=== PATIENT | male | born 2000 | race Hispanic/Latino ===

== ENCOUNTER 2024-11-17 21:40 | Emergency (ER) | payer OTHER, SELFPAY ==
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
[2024-11-17 21:36] VITALS: BP 142/68; PULSE 85; RESP 14; TEMP 36.8; O2SAT 92
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
[2024-11-17] MEDS: MORPHINE SULFATE (*CRX) 4 MG/ML INJ IV PUSH (21:56)
[2024-11-17] MEDS: ONDANSETRON INJ 4 MG/2 ML VIAL IV PUSH (21:56)
[2024-11-17 22:21] VITALS: PULSE 93; RESP 17; O2SAT 100
[2024-11-17 22:24] VITALS: BP 139/50; PULSE 97; RESP 17; O2SAT 100
--- NOTE | 2024-11-17 22:26 | PC.NURSE ---
1L NS Bolus infused that was started by EMS.
--- NOTE | 2024-11-17 22:29 | PC.NURSE ---
[facility] 1 dose
[2024-11-17 22:32] VITALS: BP 116/54; PULSE 87; RESP 17; O2SAT 100
[2024-11-17] MEDS: HYDROmorphone HCL INJ (*CRX) 2 MG/ML VIAL 0.5 MG IV PUSH (22:36)
[2024-11-17 23:02] VITALS: BP 119/56; PULSE 85; RESP 23; O2SAT 100
[2024-11-17 23:27] LABS: Estimated CRCL calculation 107 ml/min; Estimated Glomerular Filt Rate > 60
[2024-11-18] VITALS (9 sets, daily range): BP systolic 115–139; BP diastolic 50–92; PULSE 83–101; RESP 15–23; TEMP 36.6; O2SAT 98–100
== END 2024-11-18 02:04 | disposition home or self-care (01) ==
PROVIDERS: Emergency Provider Emergency Medicine
DX: S27.321A Contusion of lung, unilateral, initial encounter (principal); S70.312A Abrasion, left thigh, initial encounter; S80.812A Abrasion, left lower leg, initial encounter; V89.2XXA Person injured in unspecified motor-vehicle accident, traffic, initial encounter
CPT/HCPCS: 70450; 71260; 72125; 73090; 73552; 73560; 73590; 74177; 96374; 96375; 99284; J1171; J2270; J2405; Q9967